=== PATIENT | male | born 1960 | race Caucasian/White ===

== ENCOUNTER → 2017-04-29 | Outpatient (CLI) | payer OTHER | END | disposition home or self-care (01) | LOC: RADPV 13:41 | PROVIDERS: ATTEND Internal Medicine Geriatric Medicine | DX: M19.012 Primary osteoarthritis, left shoulder (principal) ==

== ENCOUNTER 2022-05-04 19:39 | Emergency (ER) | payer SELFPAY | END 2022-05-04 20:18 | disposition left against medical advice (07) | LOC: EMS 19:42 | DX: R33.9 Retention of urine, unspecified (principal); Z53.21 Procedure and treatment not carried out due to patient leaving prior to being seen by health care provider ==